=== PATIENT | female | born 1990 | race Caucasian/White ===

== ENCOUNTER 2021-11-03 10:38 | Observation (INO) ==
[2021-11-03] MEDS ORDERED: LACTATED RINGER'S 1,000 ML IV PRN (10:56)
[2021-11-03] MEDS ORDERED: OXYTOCIN 30 UNITS/500 ML BAG IV PRN (10:56)
[2021-11-03] MEDS ORDERED: PENICILLIN G POTASSIUM 6 MU in DEXTROSE 5% 250 ML IV STA (10:56)
[2021-11-03 11:34] LABS: Hematocrit (blood only) 40.8 % (37-47); Hemoglobin 13.5 g/dL (12.0-16.0); Mean Corpuscular Hemoglobin 31.7 pg (25-34); Mean Corpuscular Hgb Conc 33.1 g/dL (32-36); Mean Corpuscular Volume 95.8 fL (80-100); Mean Platelet Volume 10.6 fL (7.4-10.4); Platelet Count 315 K/uL (130-400); RDW Coefficient of Variation 13.4 % (11.5-14.5); RDW Standard Deviation 46.5 fL (36.4-46.3); Red Blood Count 4.26 M/uL (4.2-5.4); White Blood Count 17.86 K/uL (4.8-10.8)
--- NOTE | 2021-11-03 12:05 | History & Physical Report ---
Date of Service November 03, 2021 Assessment & Plan (1) Trisomy 21 of fetus, current : Plan: transfer of patient to [facility] per patients request PCN for GBS prophylaxis Covid negative Admission and Anticipated Discharge Date Admission Date: November 03, 2021 History of Present Illness Chief Complaint: term in labor Primary Care Provider: ROSINA PCP 31 WF P0000 at 39.6 days seen at [facility] L&D after seen in office today to r/o labor. Noted to be mildred. She is requesting to be transferred to [facility] despite her being in early labor due to her being followed by M and induction scheduled for tomorrow. Her GBS is positive. States she last had PCN as child with hives. Covid is negative. Allergies Allergy/AdvReac Type Severity Reaction Status Date / Time Penicillins Allergy Intermediate Hives Verified 11/03/21 11:05 Home Medications Medication Instructions Recorded Confirmed Type ferrous sulfate 325 mg (65 mg 325 mg PO DAILY 11/03/21 11/03/21 History iron) capsule,extended release iodine 150 mcg tablet 150 mcg PO DAILY 11/03/21 11/03/21 History prenat.vits,iqra,bez-jmnb-huphs 1 tab PO DAILY 11/03/21 11/03/21 History Patient History Surgical History H/O wisdom tooth extraction Social History Smoking Status: Never smoker Hx Alcohol Use: No Hx Substance Use: No Preferred Language: Iranian Communication Ability: Effective Nurse First Assist Required: No Beliefs That Will Affect Care: None marital status: Current Living Situation: Spouse Current Living Situation Comment: Lives with and 1 dog Other Information That Helps Us Care for You: No Feels Safe at Home: Yes Safety Concerns: Feels Safe At This Time Assistive Devices: None OB History Trisomy 21 with current 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 GC/Chlamydia negative Review of Systems All systems reviewed & are unremarkable except as noted in HPI & below Physical Exam Constitutional: WD/WN, vitals as above comfortable Eyes: PERRL, conjunctivae normal, anicteric sclerae Respiratory: normal respiratory effort, lungs clear to auscultation Cardiovascular: RRR, no murmur, no edema Skin: no rashes, warm and dry Neurologic: patellar DTR's 2+ bilat, sensation intact Psychiatric: A+Ox3, euthymic affect Genitourinary: no vaginal lesions, no adnexal mass normal external appearance OB Exam Abdomen: + fundal height and + vertex Manual OB Exam: + cervical dilation 4 cm, + cervical effacement 80% and + station -2 OB Exam Monitor Tracing: + external FHT monitor used, + external uterine monitor used, + category I and + normal FHT variability GBS is positive Results & Data ([facility]) Vital Signs (Past 12 Hours) Vital Signs Temp Pulse Resp BP 11/03/21 10:45 110 H 130/79 11/03/21 10:44 36.8 C 20 Laboratory Results 11/03/21 11/03/21 11/03/21 11:08 11:21 11:21 WBC 17.86 H RBC 4.26 Hgb 13.5 Hct 40.8 MCV 95.8 MCH 31.7 MCHC 33.1 RDW Std Deviation 46.5 H RDW Coeff of Brent 13.4 Plt Count 315 MPV 10.6 H SARS-CoV-2 (PCR) Cancelled Influenza Type A (PCR) Cancelled Influenza Type B (PCR) Cancelled RSV (RT-PCR) Cancelled SARS-CoV-2, RNA, NAAT NEGATIVE Code Status & VTE Plan VTE Prophylaxis Plan VTE Prophylaxis will be ordered: No Monitoring External Monitor Cat 1 with contractions noted 4 minutes apart
[2021-11-03] MEDS ORDERED: PENICILLIN G POTASSIUM 3 MU in DEXTROSE 5% 100 ML IV PRN (13:56)
== END 2021-11-03 13:04 | disposition short-term general hospital (02) ==
LOC: OPB 10:38 → 4S1 10:39 → INTOOBSV 10:56 → 4S1 10:56

== ENCOUNTER 2025-01-07 01:54 | Inpatient (IN) ==
--- OUTSIDE RECORDS SUMMARY | 2025-01-07 02:02 | External Medical Summary | Summary of Care ---
Author Name Unknown Organization [facility] Address [address] [place] [address] Phone [phone] Care Team Providers Care Yard Rigger Name Role Phone Unavailable Primary Care Provider Unavailabl e Reason for Visit * Reason Comments Return Visit Encounter Details Date Type Department Care Team ([facility] Contact Info) Description 01/02/2025 11:45 AM EDT Office Visit Gynecology/Obstetric s Jer Pineda [address] [place] [id number] Pat Campbell PA-C [address] [place] [phone] Supervision of other normal , antepartum*; GBS (group B streptococcus) infection; Antepartum multigravida of advanced maternal age; Family history of Down syndrome Allergies No known active allergiesdocumented as of this encounter (statuses as of 01/02/2025) Medications 27-0.8 MG Oral Tablet Take 1 Tablet by mouth in the morning. Active OneTouch Verio w/Device Kit Use as directed. Test blood sugar 4 times a day 1 Kit 5 01/03/20 25 Discontinu ed(Medicat ion List Clean Up) OneTouch Delica Lancets 33G Test blood sugar 4 times a day 100 Each 1 5 03/12/20 25 Discontinu ed(Medicat ion List Clean Up) OneTouch Verio In Vitro Strip (Glucose Blood) Test blood sugar 4 times a day 100 Strip 1 5 01/03/20 25 Discontinu ed(Medicat ion List Clean Up) documented as of this encounter (statuses as of 01/02/2025) Active Problems Problem Noted Date Diagnosed Date Supervision of other normal , antepartu m 07/09/2024 Antepartum multigravida of advanced maternal age 0907/09/2024 Family history of Down syndrome 07/09/2024 Overview (07/09/2024): Daughter with T21 Vaginal delivery 11/04/2021 GBS (group B streptococcus) infection 10/23/2021 Overview (12/19/2024): Assessment & Plan (10/27/2021 4:12 PM EST): 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 Allergic rhinitis 08/02/2010 Estimated Date of Delivery Comme nts Yes 01/08/2025 Based on Ultraso und documented as of this encounter (statuses as of 01/02/2025) Resolved Problems Problem Noted Date Diagnosed Date Resolved Date Pleural effusion, , aff ecting care of mother, antepartum 08/14/2021 12/14/2021 Overview (10/27/2021): Resolved as of 10/27/21 per [facility] Assessment & Plan (10/27/2021 4:13 PM EST): No effusion visualized today. This is excellent news as will hopefully minimize need for invasive intervention by NICU team. We did discuss risk for hypotonia in neonates with T21, so baby will be evaluated at for any additional medical support needed. Labor precautions reviewed as well as plan to present to nearest hospital in the event of an emergency or bad weather as maternal or transport can be arranged if needed. kick counts reviewed and Danica is to call/present to triage with any concerns. No further surveillance is scheduled prior to IOL next week. Assessment & Plan (10/22/2021 4:30 PM EST): She presents for follow-up of growth, a pleural effusion and surveillance. This has been complicated by the finding of pleural effusions (L>R) and concern for Trisomy 21 on cffDNA. Today's ultrasound notes the following: We reviewed the results of today's ultrasound. The estimated weight is appropriate for gestational age in the 33rd percentile. The visualized anatomy is unremarkable in appearance. The previously noted pleural effusions have essentially resolved, with perhaps only a trace left pleural effusion remaining. The LEONID is normal. A BPP is 8/8. There is no evidence of hydrops. Recommend continued weekly follow-up as planned. Assessment & Plan (10/15/2021 5:59 PM EST): She presents for follow-up of a pleural effusion and surveillance. This has been complicated by the finding of pleural effusions (L>R) and concern for Trisomy 21 on cffDNA. We reviewed the results of today's ultrasound. The pleural effusions have decreased in size compared to prior exams. The LEONID is normal. A BPP is 8/8. There is no evidence of hydrops. I recommended continued weekly follow-up as planned. Assessment & Plan (09/18/2021 4:41 PM EST): Right lung: Trace pleural effusion Left lung: abnormal, pleural effusion measuring 6 x 2.0 x 3cm. Pleural effusions continue to be seen. Today, the left sided pleural effusion appears to be stable compared to the evaluation from last week. Right sided effusion has improved. No other signs of hydrops. Will continue to follow weekly for BPP and hydrops check. MDC has occurred. Plan for delivery in [place]. Patient understands possible need for pleurocentesis after delivery. Assessment & Plan (08/28/2021 3:35 PM EDT): Right lung: Normal today Left lung: abnormal, pleural effusion measuring 4.5 x 2.0 x 1.5cm Unilateral pleural effusion continue to be seen. Today, the left sided pleural effusion appears to be smaller than the evaluation from last week. The right sided pleural effusion is not seen today. No other signs of hydrops. Will add weekly BPP at 32 weeks Will continue to follow weekly. Patient desires MDC in the near future given her desire to see the facilities at [facility]. peds referral made. Assessment & Plan (08/14/2021 12:24 PM EDT): Right lung: abnormal, trace pleural effusion Left lung: abnormal, pleural effusion measuring 3.7 x 3.0 x 2.4cm Bilateral pleural effusions continue to be seen. Today, the left sided pleural effusion appears larger than the right side but is smaller than last week. The right sided pleural effusion continues to be seen but has gotten smaller. Will continue to follow weekly. Patient desires MDC in the near future given her desire to see the facilities at [facility]. Abnormal chromosomal and gen etic finding on screening of mother 07/09/2021 12/14/2021 Assessment & Plan (08/28/2021 3:37 PM EDT): Presumed T21 based on NIPT. Assessment & Plan (08/14/2021 12:20 PM EDT): Likely T21 based on ultrasound findings and NIPT results. Cystic hygroma of fetus in s [place] 06/30/2021 12/14/2021 Overview (09/08/2021): Cell free DNA screening: ordered as of 06/22/21; consider amniocentesis upon result. Attend genetics counselor appointment on 06/30/21. Pediatric Cardiology echocardiogram at 22-23 weeks. [facility] serial growth scan every 4 weeks. [facility] serial hydrops check after 24.0 weeks. Weekly BPP at 32 wks multidisciplinary conference: [facility]. Rubella non-immune status, antepartum 04/02/2021 12/14/2021 High-risk 04/01/2021 12/14/19 22 Acute URI 08/02/2010 07/03/2018 Cough 08/02/2010 07/03/2018 ADVANCE DIRECTIVE INFORMATION 03/01/2006 07/03/2018 Overview (03/01/2006): Not age appropriate Varicella without complication 10/25/2002 07/03/2018 RUBELLA UNCOMPLICATED - age 2 04/27/2000 07/03/2018 documented as of this encounter (statuses as of 01/02/2025) Immunizations Name Administration Dates Next Due H1N1 2009 Influenza, IM 03/02/2010 HPV Vaccine, 4-Valent 09/10/2010,05/07/2010,02/21 Hepatitis A, Ped/Adol., 18 y ear and below, 2-Dose 04/27/2006 MMR - Measles/Mumps/Rubella Vaccine 11/05/2021 Seasonal Influenza, PF, 6 M & above, IM , (FluLaval or Fluzone) 08/11/2021 TDAP (age 10 and older)(Boostrix) 08/11/2021,10/2011 documented as of this encounter Social History Tobacco Use Types Packs/Day Years Used Date Smoking Tobacco: Never Smokeless Tobacco: Never Alcohol Use Standard Drinks/Week Comments Not Currently 0 (1 standard drink = 0.6 oz pur e alcohol) rare Hunger Vital Sign Answer Date Recorded Within the past 12 months, y ou worried that your food would run out before you got the money to buy more. Never true 11/16/19 25 Within the past 12 months, t he food you bought just didn't last and you didn't have money to get more. Never true 11/16/2024 [place] Depression Scale Answer Date Recorded [place] Depression Scale Total 0 11/16/2024 The thought of harming myself has occurred to me . Never 11/16/2024 Childcare Answer Date Recorded Do you feel overwhelmed with taking care of a child, family member or friend? No 11/16/2024 Does your family need help f inding childcare? (Household - for ages 0-17 years) Not on file 11/16/2024 Clothing Answer Date Recorded Have you been unable to get clothing when it was really needed? No 11/16/2024 Is your family able to get c lothes or diapers when needed? (Household - for ages 0-17 years) Not on file 11/16/2024 Personal Safety Answer Date Recorded Do you feel unsafe or have concerns for your saf ety? No 11/16/2024 Do you have concerns for you r family's safety? (Household - for ages 0-17 years) Not on file 11/16/2024 Utilities Answer Date Recorded Do you have trouble paying y our heating, water, or electric bill? No 11/16/2024 Is your family able to pay t he heat, water, or electric bill? (Household - for ages 0-17 years) Not on file 11/16/2024 Does your family have access to good internet? (Household - for ages 0-17 years) Not on file 11/16/2024 Employment Status Answer Date Recorded Are you unemployed or without regular income? No 11/16/2024 Does the household have a re gular source of income? (Household - for ages 0-17 years) Not on file 11/16/2024 Social Connections Answer Date Recorded How often do you feel lonely or isolated from th ose around you? Never 11/16/2024 Financial Resource Strain Answer Date R ecorded Do you have any trouble payi ng for your medications, or do you think you might in the future? No 11/16/2024 Does your family have troubl e paying for medicine? (Household - for ages 0-17 years) Not on file 11/16/2024 Transportation Needs Answer Date Record ed Do you have trouble getting a ride to medical visits or work? (Adult - for ages 18 years and over) Not on file 11/16/2024 Does your family have a hard time getting a ride to doctors visits? (Household - for ages 0-17 years) Not on file 11/16/2024 Has lack of transportation k ept you from medical appointments, meetings, work, or from getting things needed for daily living? Check all that apply. No 11/16/2024 Do you (or your family) have trouble finding or paying for a ride (transportation)? (Household - for ages 0-17 years) Not on file 11/16/2024 Housing Stability Answer Date Recorded Do you currently live in a s helter or have no steady place to sleep at night? No 11/16/2024 Do you think you are at risk of becoming homeless? (Adult - for ages 18 years and over) Not on file 11/16/2024 Does your family worry about paying for your home or becoming homeless? (Household - for ages 0-17 years) Not on file 11/16/2024 Are you homeless or worried that you might be in the future? No 11/16/2024 Are you (or your family) emilio eless or worried that you might be in the future? (Household - for ages 0-17 years) Not on file Food Insecurity Answer Date Recorded Do you need food for this week? No 11/16/2024 Are you able to get enough f ood for your family? (Household - for ages 0-17 years) Not on file 11/16/2024 Does your family need food t his week? (Household - for ages 0-17 years) Not on file 11/16/2024 Do you always have enough fo od for your family? (Household - for ages 0-17 years) Not on file 11/16/2024 Food Insecurity Answer Date Recorded Within the past 12 months, y ou worried that your food would run out before you got the money to buy more. Never true 11/16/19 25 Within the past 12 months, t he food you bought just didn't last and you didn't have money to get more. Never true 11/16/2024 Do you need food for this week? No 11/16/2024 Estimated Date of Delivery Comme nts Yes 01/08/2025 Based on Ultraso und Sex and Gender Information Value Date Recorded Sex Assigned at Not on file Legal Sex Female 7:15 AM EST Gender Identity Not on file Sexual Orientation Not on file documented as of this encounter Last Filed Vital Signs Vital Sign Reading Time Taken Comments Blood Pressure 124/78 01/02/2025 11:46 AM EDT Pulse - - Temperature - - Respiratory Rate - - Oxygen Saturation - - Inhaled Oxygen Concentration - - Weight 79.4 kg (175 lb) 01/02/2025 11:46 AM EDT Height 154.9 cm (5' 1") 01/02/2025 11:46 AM EDT Body Mass Index 33.07 01/02/2025 11:46 AM EDT documented in this encounter Progress Notes * Pat Campbell PA-C - 01/02/2025 12:15 PM EDT 39w1d GBS positive, was last . Asking about hospital protocol for Mike Faria specifically. Advised to contract L&D for specifics on her questions. Discussed postdate IOL. Reviewed increased concern for maternal- well being especially 41 weeks + and that IOL are at times limited d/t scheduling. For this discussed is typically Plan B with natural labor being goal, and that scheduling ahead helps to ensure scheduled in timely manner. Patient politely declines. States I am "not really interested" in induction. Pt states prefers to wait well after due date. States would consider around 42 weeks if necessary. However, went into natural labor around due date with last child and does not feel she will go that long with this . Denies VB, LOF, contractions. Pos fm. Declines check. RTC in 1 week Pat Campbell PA-C documented in this encounter Nursing Notes * Yuly Friend LPN - 01/02/2025 11:50 AM EDT 39w1d Declines IOL Would like to discuss GBS documented in this encounter Plan of Treatment Upcoming Encounters Date Type Department Care Team (Late st Contact Info) Description 01/09/2025 10:30 AM EDT Office Visit Gynecology/Obstetrics [facility] [address] [place] [id number] Pat Campbell PA-C [address] [place] [place] [phone] Health Maintenance Due Date Last Done Comments Diabetes Screening 1990 Depression Screening 2002 HPV/Co-Test 01/02/2020 Cervical Cancer Screening 04/01/2024 Pap Smear 04/01/2024 04/01/2021, 06/24, 06/15/2012 COVID-19 Vaccine ( season) 2024 Influenza Vaccine (FLU shot) (#1) 2024 08/11/2021, 03/02/2010 DTap/Tdap Vaccines (9 - Td or Tdap) 08/11/2031 08/11/2021, 10/24/2011, 07/28/2005, Additional history exists Hepatitis B Vaccine Completed 03/05/1996, 09/09/1995, 08/09/1995 MENINGOCOCCAL (MENACTRA/MENVEO) Aged Out 10/26/2005 No longer eligible based on patient's age to complete this topic HPV (Gardasil) Vaccine Completed 0, 05/07/2010, 03/02/2010 Meningitis B Vaccine (Bexsero/Trumemba) Aged Out No longer eligible based on patient's age to complete this topic Pneumococcal Vaccine: Pediatrics (0 to 5 Years) and At-Risk Patients (6 to 18 Years and 19+ Years) Aged Out No longer eligib le based on patient's age to complete this topic documented as of this encounter Medical Devices Not on filedocumented as of this encounter Visit Diagnoses Diagnosis Pleural effusion, , affecting care of mother, antepartum- Primary Cystic hygroma of fetus in [place] Abnormal chromosomal and genetic finding on screening of mother Abnormal findings on screening GBS (group B streptococcus) infection Streptococcus infection in conditions classified elsewhere and of unspecified site, group B Supervision of other normal , antepartum- Primary GBS (group B streptococcus) infection Streptococcus infection in conditions classified elsewhere and of unspecified site, group B Antepartum multigravida of advanced maternal age Family history of Down syndrome Family history of congenital anomalies documented in this encounter Advance Directives * Full Code (Latest Code Status on File) Date Activated Date Inactivated Comments 11/03/2021 3:30 PM 11/05/2021 6:21 PM This order r eflects the patients wishes and were consensually agreed upon.
--- OUTSIDE RECORDS SUMMARY | 2025-01-07 02:02 | External Medical Summary | Summary of Care ---
Author Name Unknown Organization [facility] Address [address] [place] [address] Phone [phone] Care Team Providers Care Elevator Operator Name Role Phone Unavailable Primary Care Provider Unavailabl e Reason for Visit * Reason Comments Return Visit Encounter Details Date Type Department Care Team ([facility] Contact Info) Description 12/17/2024 10:15 AM EST Office Visit Gynecology/Obstetric s Jer Pineda [address] [place] [address] Lizzy Rocha CRNP [address] [place] [address] Supervision of other normal , antepartum*; Antepartum multigravida of advanced maternal age; Family history of Down syndrome Allergies No known active allergiesdocumented as of this encounter (statuses as of 12/17/2024) Medications 27-0.8 MG Oral Tablet Take 1 Tablet by mouth in the morning. Active OneTouch Verio w/Device Kit Use as directed. Test blood sugar 4 times a day 1 Kit Active Additional Information Patient not taking.Reported on 12/17/2024 OneTouch Delica Lancets 33G Test blood sugar 4 times a day 100 Each 1 Active Additional Information Patient not taking.Reported on 12/17/2024 OneTouch Verio In Vitro Strip (Glucose Blood) Test blood sugar 4 times a day 100 Strip 1 Active Additional Information Patient not taking.Reported on 12/17/2024 documented as of this encounter (statuses as of 12/17/2024) Active Problems Problem Noted Date Diagnosed Date Supervision of other normal , antepartu m 07/09/2024 Antepartum multigravida of advanced maternal age 0907/09/2024 Family history of Down syndrome 07/09/2024 Overview (07/09/2024): Daughter with T21 Vaginal delivery 11/04/2021 Allergic rhinitis 08/02/2010 Estimated Date of Delivery Comme nts Yes 01/08/2025 Based on Ultraso und documented as of this encounter (statuses as of 12/17/2024) Resolved Problems Problem Noted Date Diagnosed Date Resolved Date GBS (group B streptococcus) infection 10/23/2021 12/14/2021 Overview (10/30/2021): 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 Assessment & Plan (10/27/2021 4:12 PM EST): 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 Pleural effusion, , aff ecting care of mother, antepartum 08/14/2021 12/14/2021 Overview (10/27/2021): Resolved as of 10/27/21 per [facility] Assessment & Plan (10/27/2021 4:13 PM EST): [...] MDC has occurred. Plan for delivery in [place]. Patient understands possible need for pleurocentesis after [...] her desire to see the facilities at [facility]. peds referral made. Assessment & Plan (08/14/2021 [...] her desire to see the facilities at [facility]. Abnormal chromosomal and gen etic finding on screening of mother 07/09/2021 12/14/2021 Assessment & Plan (08/28/2021 3:37 PM EDT): Presumed T21 based on NIPT. Assessment & Plan (08/14/2021 12:20 PM EDT): Likely T21 based on ultrasound findings and NIPT results. Cystic hygroma of fetus in s [place] 06/30/2021 12/14/2021 Overview (09/08/2021): Cell free DNA screening: ordered as of 06/22/21; consider amniocentesis upon result. Attend genetics counselor appointment on 06/30/21. Pediatric Cardiology echocardiogram at 22-23 weeks. [facility] serial growth scan every 4 weeks. [facility] serial hydrops check after 24.0 weeks. Weekly [...] as of this encounter (statuses as of 12/17/2024) Immunizations Name Administration Dates Next Due H1N1 2008 Influenza, IM 03/02/2010 HPV Vaccine, 4-Valent 09/10/2010,05/07/2010,02/21 [...] money to get more. Never true 11/16/2024 [place] Depression Scale Answer Date Recorded [place] Depression Scale Total 0 11/16/2024 The thought [...] for ages 0-17 years) Not on file 0 11/16/2024 Are you homeless or worried that [...] Sign Reading Time Taken Comments Blood Pressure 118/72 12/17/2024 10:28 AM EST Pulse - - Temperature - - Respiratory Rate - - Oxygen Saturation - - Inhaled Oxygen Concentration - - Weight 79 kg (174 lb 3.2 oz) 12/17/2024 10:28 AM EST Height - - Body Mass Index 32.91 11/16/2024 1:34 PM EST documented in this encounter Progress Notes * Lizzy Rocha CRNP - 12/17/2024 10:49 AM EST 36w6d Complaints: none Feeling well overall. Good FM. No contractions, bleeding, or LOF. GBS today. Decorating Supervisor Documentation Provider requested hydro electric station operator. Name of hydro electric station operator: ERNESTINA Sargent * Lorena Jimenez CMA - 12/17/2024 10:28 AM EST 36w6d GBS swab today documented in this encounter Plan of Treatment Upcoming Encounters Date Type Department Care Team (Late st Contact Info) Description 01/02/2025 11:45 AM EDT [facility] [address] [place] [address] Pat Campbell PA-C [address] [place] [address] Pending Results Name Type Priority Associated Diagnoses Date /Time GROUP B STREP CULTURE/PCR Lab Routine Supervision of other normal , antepartum 12/17/2024 10:40 AM EST Scheduled Orders Name Type Priority Associated Diagnoses Orde r Schedule GROUP B STREP CULTURE/PCR Lab Routine Supervision of other normal , antepartum Expected: 12/17/2024, Expires: 12/17/2025 Health Maintenance Due Date Last Done Comments Depression Screening 2002 HPV/Co-Test 01/02/2020 Cervical Cancer [...] as of this encounter Visit Diagnoses Diagnosis Supervision of other normal , antepartum- Primary Antepartum multigravida of advanced maternal age Family history of Down syndrome Family history of congenital anomalies documented in this encounter Advance Directives * Full Code (Latest Code Status on File) Date Activated Date Inactivated Comments 11/03/2021 3:30 PM 11/05/2021 6:21 PM This order r eflects the patients wishes and were consensually agreed upon.
--- OUTSIDE RECORDS SUMMARY | 2025-01-07 02:02 | External Medical Summary | Summary of Care ---
Author Name Unknown Organization [facility] Address [address] [place] [address] Phone [phone] Care Team Providers Care Community Health Specialist Name Role Phone Unavailable Primary Care Provider Unavailabl e Encounter Details Date Type Department Care Team (Late st Contact Info) Description 11/01/2024 Telephone Gynecology/Obstetrics [facility] [address] [place] [address] Lizzy Rocha CRNP [address] [place] [phone] Allergies No known active allergiesdocumented as of this encounter (statuses as of 11/05/2024) Medications 27-0.8 MG Oral Tablet Take 1 Tablet by mouth in the morning. Active documented as of this encounter (statuses as of 11/05/2024) Active Problems Problem Noted Date Diagnosed Date Supervision of other normal , antepartu m 07/09/2024 Antepartum multigravida of advanced maternal age 0907/09/2024 Family history of Down syndrome 07/09/2024 Overview (07/09/2024): Daughter with T21 Vaginal delivery 11/04/2021 Allergic rhinitis 08/02/2010 Estimated Date of Delivery Comme nts Yes 01/08/2025 Based on Ultraso und documented as of this encounter (statuses as of 11/05/2024) Resolved Problems Problem Noted Date Diagnosed Date [...] Overview (10/27/2021): Resolved as of 10/27/21 per [facility] Assessment & Plan (10/27/2021 4:13 PM EST): [...] MDC has occurred. Plan for delivery in [place]. Patient understands possible need for pleurocentesis after [...] desire to see the facilities at [facility]. peds referral made. [...] desire to see the facilities at [facility]. Abnormal chromosomal and gen etic finding on screening of mother 07/09/2021 12/14/2021 Assessment & Plan (08/28/2021 3:37 PM EDT): Presumed T21 based on NIPT. Assessment & Plan (08/14/2021 12:20 PM EDT): Likely T21 based on ultrasound findings and NIPT results. Cystic hygroma of fetus in s [place] 06/30/2021 12/14/2021 Overview (09/08/2021): Cell free DNA screening: ordered as of 06/22/21; consider amniocentesis upon result. Attend genetics counselor appointment on 06/30/21. Pediatric Cardiology echocardiogram at 22-23 weeks. [facility] serial growth scan every 4 weeks. [facility] serial hydrops check after 24.0 weeks. Weekly [...] as of this encounter (statuses as of 11/05/2024) Immunizations Name Administration Dates Next Due H1N1 [...] = 0.6 oz pur e alcohol) rare [place] Depression Scale Answer Date Recorded [place] Depression Scale Total 1 07/09/2024 The thought of harming myself has occurred to me . Never 07/09/2024 Estimated Date of Delivery Comme nts Yes 01/08/2025 Based on Ultraso und Sex and Gender Information Value Date Recorded Sex Assigned at Not on file Legal Sex Female 7:15 AM EST Gender Identity Not on file Sexual Orientation Not on file documented as of this encounter Miscellaneous Notes * Telephone Encounter - Lizzy Rocha CRNP - 11/01/2024 8:53 AM EST I believe there is a Fresh Test option that she could purchase. This would be fine for her to do, the same way she did the Fresh Test yesterday. * Telephone Encounter - Rufina Mai LPN - 11/01/2024 8:34 AM EST Patient notified of abnormal glucola. The order has been placed in epic. Patient. advised to be NPO after 10pm the night before the test.The patient must stay on the premises for the entire time of the test. Patient counseled to take something to eat for after testing. Patients 1 hour testing was done via fresh test. Is there an option to do this for the 3 hour testing? * Telephone Encounter - Lizzy Rocha CRNP - 11/01/2024 8:28 AM EST Please notify pt that glucola elevated (190). Needs 3hr GTT. Orders placed. documented in this encounter Plan of Treatment Upcoming Encounters Date Type Department Care Team (Late st Contact Info) Description 11/16/2024 1:30 PM EST Office Visit Gynecology/Obstetrics Jer Pineda [address] [place] [address] Backer AnabelaERNESTINA Johansen [address] [place] [address] Scheduled Orders Name Type Priority Associated Diagnoses Orde r Schedule GESTATIONAL GLUCOSE TOLERANCE, 3 HOUR Lab Routine Abnormal glucose tolerance in mother complicating Expected: 11/02/2024 (Approximate), Expires: 11/01/2025 Health Maintenance Due Date Last Done Comments [...] HPV (Gardasil) Vaccine Completed 0, 05/07/2010, 03/02/2010 Pneumococcal Vaccine: Pediatrics (0 to 5 Years) and At-Risk Patients (6 to 18 Years and 19+ Years) Aged Out No longer eligib le based on patient's age to complete this topic documented as of this encounter Medical Devices Not on filedocumented as of this encounter Visit Diagnoses Diagnosis Abnormal glucose tolerance in mother complicating - Primary Abnormal maternal glucose tolerance, complicating , childbirth, or the puerperium, unspecified as to episode of care documented in this encounter Advance Directives * Full Code (Latest Code Status on File) Date Activated Date Inactivated Comments 11/03/2021 3:30 PM 11/05/2021 6:21 PM This order r eflects the patients wishes and were consensually agreed upon.
--- OUTSIDE RECORDS SUMMARY | 2025-01-07 02:02 | External Medical Summary | Summary of Care ---
Author Name Unknown Organization [facility] Address [address] [place] [address] Phone [phone] Care Team Providers Care Linoleum Mechanic Name Role Phone Unavailable Primary Care Provider Unavailabl e Reason for Visit * Reason Comments Return Visit Encounter Details Date Type Department Care Team ([facility] Contact Info) Description 11/16/2024 1:30 PM EST Office Visit Gynecology/Obstetric s Jer Pineda [address] [place] [address] Anabela Zamorano CRNP [address] [place] [address] Supervision of other normal , antepartum*; Antepartum multigravida of advanced maternal age; Family history of Down syndrome Allergies No known active allergiesdocumented as of this encounter (statuses as of 11/16/2024) Medications 27-0.8 MG Oral Tablet Take 1 Tablet by mouth in the morning. Active e-Go aeroplanesTouch Verio w/Device Kit Use as directed. Test blood sugar 4 times a day 1 Kit 11/05/2024 Active e-Go aeroplanesTouch Delica Lancets 33G Test blood sugar 4 times a day 100 Each 1 11/05/2024 Active e-Go aeroplanesTouch Verio In Vitro Strip (Glucose Blood) Test blood sugar 4 times a day 100 Strip 1 11/05/2024 Active documented as of this encounter (statuses as of 11/16/2024) Active Problems Problem Noted Date Diagnosed Date Supervision of other normal , antepartu m 07/09/2024 Antepartum multigravida of advanced maternal age 0907/09/2024 Family history of Down syndrome 07/09/2024 Overview (07/09/2024): Daughter with T21 Vaginal delivery 11/04/2021 Allergic rhinitis 08/02/2010 Estimated Date of Delivery Comme nts Yes 01/08/2025 Based on Ultraso und documented as of this encounter (statuses as of 11/16/2024) Resolved Problems Problem Noted Date Diagnosed Date [...] Overview (10/27/2021): Resolved as of 10/27/21 per [facility] Assessment & Plan (10/27/2021 4:13 PM [...] MDC has occurred. Plan for delivery in [place]. Patient understands possible need for pleurocentesis after [...] her desire to see the facilities at [facility]. peds referral made. Assessment & Plan (08/14/2021 [...] her desire to see the facilities at [facility]. Abnormal chromosomal and gen etic finding on screening of mother 07/09/2021 12/14/2021 Assessment & Plan (08/28/2021 3:37 PM EDT): Presumed T21 based on NIPT. Assessment & Plan (08/14/2021 12:20 PM EDT): Likely T21 based on ultrasound findings and NIPT results. Cystic hygroma of fetus in s [place] 06/30/2021 12/14/2021 Overview (09/08/2021): Cell free DNA screening: ordered as of 06/22/21; consider amniocentesis upon result. Attend genetics counselor appointment on 06/30/21. Pediatric Cardiology echocardiogram at 22-23 weeks. [facility] serial growth scan every 4 weeks. [facility] serial hydrops check after 24.0 weeks. [...] as of this encounter (statuses as of 11/16/2024) Immunizations Name Administration Dates Next Due H1N1 [...] money to get more. Never true 11/16/2024 [place] Depression Scale Answer Date Recorded [place] Depression Scale Total 0 11/16/2024 The thought [...] 11/16/2024 Does the household have a re lar source of income? (Household - for ages [...] ages 0-17 years) Not on file 11/16/2024 Estimated Date of Delivery Comme nts Yes 01/08/2025 Based on Ultraso und Sex and Gender Information Value Date Recorded Sex Assigned at Not on file Legal Sex Female 7:15 AM EST Gender Identity Not on file Sexual Orientation Not on file documented as of this encounter Last Filed Vital Signs Vital Sign Reading Time Taken Comments Blood Pressure 112/70 11/16/2024 1:34 PM EST Pulse - - Temperature - - Respiratory Rate - - Oxygen Saturation - - Inhaled Oxygen Concentration - - Weight 77.6 kg (171 lb) 11/16/2024 1:34 PM EST Height 154.9 cm (5' 1") 11/16/2024 1:34 PM EST Body Mass Index 32.31 11/16/2024 1:34 PM EST documented in this encounter Progress Notes * Anabela Zamorano CRNP - 11/16/2024 1:54 PM EST 32w3d Doing well, good movement. No leaking/bleeding/ctx. Checked blood sugar QID x2 weeks, all WNL. Can discontinue this, will scan results to EMR. S>D, suggest growth scan. She declines, wishes to recheck fundal height at next visit. 2 week return ERNESTINA Chambers documented in this encounter Plan of Treatment Upcoming Encounters Date Type Department Care Team (Late st Contact Info) Description 12/05/2024 9:30 AM EST Office Visit Gynecology/Obstetrics [facility] [address] [place] [address] Lizzy Rocha CRNP [address] [place] [phone] Health Maintenance Due Date Last Done Comments [...]
--- OUTSIDE RECORDS SUMMARY | 2025-01-07 02:02 | External Medical Summary | Summary of Care ---
Author Name Unknown Organization [facility] Address [address] [place] [address] Phone [phone] Care Team Providers Care Steward/Stewardess Banquet Name Role Phone Unavailable Primary Care Provider Unavailabl e Reason for Visit * Reason Onset Date Comments Follow Up 01/02/2025 Encounter Details Date Type Department Care Team ([facility] Contact Info) Description 01/02/2025 Telephone Gynecology/Obstetrics Jer Sorianos [address] [place] [address] Lizzy Rocha CRNP [address] [place] [address] Follow Up Allergies No known active allergiesdocumented as of [...] Overview (10/27/2021): Resolved as of 10/27/21 per [facility] Assessment & Plan (10/27/2021 4:13 PM EST): [...] MDC has occurred. Plan for delivery in [place]. Patient understands possible need for pleurocentesis after [...] her desire to see the facilities at [facility]. peds referral made. Assessment & Plan (08/14/2021 [...] her desire to see the facilities at [facility]. Abnormal chromosomal and gen etic finding on [...] [facility] serial growth scan every 4 weeks. [facility] serial hydrops check after 24.0 weeks. Weekly [...] money to get more. Never true 11/16/2024 [place] Depression Scale Answer Date Recorded [place] Depression Scale Total 0 11/16/2024 The thought [...] encounter Miscellaneous Notes * Telephone Encounter - Vandana Hollis OSA - 01/02/2025 12:11 PM EDT Please call patient to schedule 1 week return-No availability documented in this encounter Plan of Treatment Upcoming Encounters Date Type Department Care Team (Late st Contact Info) Description 01/09/2025 10:30 AM EDT Office Visit Gynecology/Obstetrics [facility] [address] [place] [address] Pat Campbell PA-C [address] [place] [address] Health Maintenance Due Date Last Done Comments [...] Not on filedocumented as of this encounter Advance Directives * Full Code (Latest Code Status on File) Date Activated Date Inactivated Comments 11/03/2021 3:30 PM 11/05/2021 6:21 PM This order r eflects the patients wishes and were consensually agreed upon.
--- OUTSIDE RECORDS SUMMARY | 2025-01-07 02:02 | External Medical Summary | Summary of Care ---
Author Name Unknown Organization [facility] Address [address] [place] [address] Phone [phone] Care Team Providers Care Bond Clerk Name Role Phone Unavailable Primary Care Provider Unavailabl e Reason for Visit * Reason Comments Outpatient Testing Encounter Details Date Type Department Care Team ([facility] Contact Info) Description 10/31/2024 2:30 PM EST Laboratory Laboratory, [facility] [address] [place] [address] [facility] [address] [place] [address] Supervision of other normal , antepartum Allergies No known active allergiesdocumented as of this encounter (statuses as of 10/31/2024) Medications 27-0.8 MG Oral Tablet Take 1 Tablet by mouth in the morning. Active documented as of this encounter (statuses as of 10/31/2024) Active Problems Problem Noted Date Diagnosed Date Supervision of other normal , antepartu m 07/09/2024 Antepartum multigravida of advanced maternal age 0907/09/2024 Family history of Down syndrome 07/09/2024 Overview (07/09/2024): Daughter with T21 Vaginal delivery 11/04/2021 Allergic rhinitis 08/02/2010 Estimated Date of Delivery Comme nts Yes 01/08/2025 Based on Ultraso und documented as of this encounter (statuses as of 10/31/2024) Resolved Problems Problem Noted Date Diagnosed Date [...] Overview (10/27/2021): Resolved as of 10/27/21 per [facility] Assessment & Plan (10/27/2021 4:13 PM [...] MDC has occurred. Plan for delivery in [place]. Patient understands possible need for pleurocentesis after [...] her desire to see the facilities at [facility]. peds referral made. Assessment & Plan (08/14/2021 [...] her desire to see the facilities at [facility]. Abnormal chromosomal and gen etic finding on [...] 06/30/21. Pediatric Cardiology echocardiogram at 22-23 weeks. [facility] serial growth scan every 4 weeks. [facility] serial hydrops check after 24.0 weeks. [...] as of this encounter (statuses as of 10/31/2024) Immunizations Name Administration Dates Next Due H1N1 [...] = 0.6 oz pur e alcohol) rare [place] Depression Scale Answer Date Recorded [place] Depression Scale Total 1 07/09/2024 The thought of harming myself has occurred to me . Never 07/09/2024 Estimated Date of Delivery Comme nts Yes 01/08/2025 Based on Ultraso und Sex and Gender Information Value Date Recorded Sex Assigned at Not on file Legal Sex Female 7:15 AM EST Gender Identity Not on file Sexual Orientation Not on file documented as of this encounter Plan of Treatment Upcoming Encounters Date Type Department Care Team (Late st Contact Info) Description 11/16/2024 1:30 PM EST Office Visit Gynecology/Obstetrics [facility] [address] [place] [address] BackerAnabela CRNP [address] [place] [address] Pending Results Name Type Priority Associated Diagnoses Date /Time CBC WITH WBC DIFFERENTIAL AND ANEMIA REFLEX WORKUP Lab Routine Supervision of other normal , antepartum 10/31/2024 3:57 PM EST SYPHILIS ANTIBODY SCREEN WITH REFLEX TO RPR Lab Routine Supervision of other normal , antepartum 10/31/2024 3:57 PM EST 50-G GESTATIONAL GLUCOSE, 1 HOUR Lab Routine Supervision of other normal , antepartum 10/31/2024 3:57 PM EST ANEMIA CBC Lab Routine Supervision of other normal , antepartum 10/31/2024 3:57 PM EST DIFFERENTIAL, AUTOMATED Lab Routine Supervision of other normal , antepartum 10/31/2024 3:57 PM EST ANEMIA REFLEX CHEMISTRY HOLD Lab Routine Supervision of other normal , antepartum 10/31/2024 3:57 PM EST SYPHILIS ANTIBODY SCREEN Lab Routine Supervision of other normal , antepartum 10/31/2024 3:57 PM EST Health Maintenance Due Date Last Done Comments [...] Diagnoses Diagnosis Supervision of other normal , antepartum documented in this encounter Advance Directives * Full Code (Latest Code Status on File) Date Activated Date Inactivated Comments 11/03/2021 3:30 PM 11/05/2021 6:21 PM This order r eflects the patients wishes and were consensually agreed upon.
--- OUTSIDE RECORDS SUMMARY | 2025-01-07 02:02 | External Medical Summary ---
Author Name Unknown Address Unknown Organization K01:[facility] [address] [place] [address] Laboratory Report Ordering Provider Test Date Status AUGUSTIN CAM 12/17/2024 10:40:33 Final Observation Date Value Abnormality Reference (Units ) Status Streptococcus agalactiae DNA [Presence] in Specimen by MILLI with probe detection 12/17/2024 10:40:33 Positive Abnormal Negative Final Group B Streptococcus detect ed by culture-enhanced PCR (amplified probe). [facility] 12/17/2024 10:40:33 24.9 Final [facility]BS [facility] - [facility] 12/17/2024 10:40:33 0.0 Final Performing Location [facility] [address] [place] [address]
--- OUTSIDE RECORDS SUMMARY | 2025-01-07 02:02 | External Medical Summary | Summary of Care ---
Author Name Unknown Organization [facility] Address [address] [place] [address] Phone [phone] Care Team Providers Care Wax Molder Name Role Phone Unavailable Primary Care Provider Unavailabl e Encounter Details Date Type Department Care Team (Late st Contact Info) Description 11/01/2024 Telephone Gynecology/Obstetrics [facility] [address] [place] [address] Lizzy Rocha CRNP [address] [place] [address] Allergies No known active allergiesdocumented as of [...] Overview (10/27/2021): Resolved as of 10/27/21 per [facility] Assessment & Plan (10/27/2021 [...] MDC has occurred. Plan for delivery in [place]. Patient understands possible need for pleurocentesis after [...] her desire [place] [facility]. Assessment & Plan (08/14/2021 [...] her desire to see the facilities at [facility] Abnormal chromosomal and gen etic finding on [...] = 0.6 oz pur e alcohol) rare [place] Depression Scale Answer Date Recorded [place] Depression Scale Total 1 07/09/2024 The thought [...] Jer Pineda [address] [place] [address] Backer AnabelaERNESTINA Johansen [address] [place] [address] Scheduled Orders Name Type Priority Associated Diagnoses [...]
--- OUTSIDE RECORDS SUMMARY | 2025-01-07 02:02 | External Medical Summary | Summary of Care ---
Author Name Unknown Organization [facility] Address [address] [place] [address] Phone [phone] Care Team Providers Care Beamer Operator Name Role Phone Unavailable Primary Care Provider Unavailabl e Reason for Visit * Reason Comments Return Visit Encounter Details Date Type Department Care Team ([facility] Contact Info) Description 12/05/2024 9:30 AM EST Office Visit Gynecology/Obstetric s Jer Pineda [address] [place] [address] Lizzy Rocha CRNP [address] [place] [address] Supervision of other normal , antepartum*; Antepartum multigravida of advanced maternal age; Family history of Down syndrome Allergies No known active allergiesdocumented as of this encounter (statuses as of 12/05/2024) Medications 27-0.8 MG Oral Tablet Take 1 Tablet by mouth in the morning. Active OneTouch Verio w/Device Kit Use as directed. Test blood sugar 4 times a day 1 Kit 5 Active Additional Information Patient not taking.Reported on 12/05/2024 OneTouch Delica Lancets 33G Test blood sugar 4 times a day 100 Each 1 5 Active Additional Information Patient not taking.Reported on 12/05/2024 OneTouch Verio In Vitro Strip (Glucose Blood) Test blood sugar 4 times a day 100 Strip 1 Active Additional Information Patient not taking.Reported on 12/05/2024 documented as of this encounter (statuses as of 12/05/2024) Active Problems Problem Noted Date Diagnosed Date Supervision of other normal , antepartu m 07/09/2024 Antepartum multigravida of advanced maternal age 0907/09/2024 Family history of Down syndrome 07/09/2024 Overview (07/09/2024): Daughter with T21 Vaginal delivery 11/04/2021 Allergic rhinitis 08/02/2010 Estimated Date of Delivery Comme nts Yes 01/08/2025 Based on Ultraso und documented as of this encounter (statuses as of 12/05/2024) Resolved Problems Problem Noted Date Diagnosed Date [...] Overview (10/27/2021): Resolved as of 10/27/21 per [facility] Assessment & Plan (10/27/2021 4:13 PM [...] MDC has occurred. Plan for delivery in [place]. Patient understands possible need for pleurocentesis after [...] her desire to see the facilities at [facility]. peds referral made. Assessment [...] her desire to see the facilities at [facility]. Abnormal chromosomal and gen [...] 06/30/21. Pediatric Cardiology echocardiogram at 22-23 weeks. [facility] serial growth scan every 4 weeks. [facility] serial hydrops check after 24.0 weeks. [...] as of this encounter (statuses as of 12/05/2024) Immunizations Name Administration Dates Next Due H1N1 [...] money to get more. Never true 11/16/2024 [place] Depression Scale Answer Date Recorded [place] Depression Scale Total 0 11/16/2024 The thought [...] Sign Reading Time Taken Comments Blood Pressure 114/72 12/05/2024 9:32 AM EST Pulse - - Temperature - - Respiratory Rate - - Oxygen Saturation - - Inhaled Oxygen Concentration - - Weight 78 kg (172 lb) 12/05/2024 9:32 AM EST Height - - Body Mass Index 32.5 11/16/2024 1:34 PM EST documented in this encounter Progress Notes * Lizzy Rocha CRNP - 12/05/2024 9:55 AM EST 35w1d No concerns. Baby is very active. Denies contractions, bleeding. Hoping to breastfeed, planning to use condoms. ERNESTINA Ventura * Lorena Jimenez CMA - 12/05/2024 9:32 AM EST 35w1d Denies any concerns documented in this encounter Plan of Treatment Upcoming Encounters Date Type Department Care Team (Late st Contact Info) Description 12/17/2024 10:15 AM EST Office Visit Gynecology/Obstetrics [facility] [address] [place] [address] Lizzy Rocha CRNP [address] [place] [address] Health Maintenance Due Date Last Done Comments [...]
--- OUTSIDE RECORDS SUMMARY | 2025-01-07 02:02 | External Medical Summary | Summary of Care ---
Author Name Unknown Organization [facility] Address [address] [place] [address] Phone [phone] Care Team Providers Care Tourist Escort Name Role Phone Unavailable Primary Care Provider Unavailabl e Encounter Details Date Type Department Care Team (Late st Contact Info) Description 11/01/2024 Telephone Gynecology/Obstetrics [facility] [address] [place] [address] Lizzy Rocha CRNP [address] [place] [address] Allergies No known active allergiesdocumented as of [...] Overview (10/27/2021): Resolved as of 10/27/21 per [facility] Assessment & Plan (10/27/2021 4:13 [...] MDC has occurred. Plan for delivery in [place]. Patient understands possible need for pleurocentesis after [...] her desire [place] [facility]. Assessment & Plan (08/14/2021 [...] her desire to see the facilities [place] [facility] Abnormal chromosomal and gen etic finding on [...] 11/05/2024) Immunizations Name Administration Dates Next Due DTP Vaccine 08/23/1994, 1,1990,03/07,08/21/1980 H1N1 2009 Influenza, IM 03/02/2010 HEP A - Hepatitis A (Adult > 18 yrs) 10/26/2005 HPV Vaccine, 4-Valent 09/10/2010,05/07/2010,02/21 Haemophilius B (HIB), unspecified 04/09/1991,,1990 Hepatitis A, Ped/Adol., 18 y ear and below, 2-Dose 04/27/2006 Hepatitis B, 0-19 yrs 03/05/1996,09/09/1995,07/24 MMR - Measles/Mumps/Rubella Vaccine 11/05/2021,1 ,04/09/1991 Meningococcal Conjugate Vacc ine (Menactra/Menveo) 10/26/2005 OPV - Polio Virus Vaccine (Oral) 994,04/09/1991,1990,03/07 Seasonal Influenza, PF, 6 M & above, IM , (FluLaval or Fluzone) 08/11/2021 TD - Tetanus/Diptheria (ADULT) 09/12/2002 TDAP (age 10 and older)(Boostrix) 08/11/2021,10/2011,07/28/2005 documented as of this encounter Social History Tobacco Use Types Packs/Day Years Used Date Smoking Tobacco: Never Smokeless Tobacco: Never Alcohol Use Standard Drinks/Week Comments Not Currently 0 (1 standard drink = 0.6 oz pur e alcohol) rare [place] Depression Scale Answer Date Recorded [place] Depression Scale Total 1 07/09/2024 The thought [...] encounter Miscellaneous Notes * Telephone Encounter - Rufina Mai LPN - 11/05/2024 10:37 AM EST [employer] for supplies * Telephone Encounter - Lizzy Rocha CRNP [...] 11/16/2024 1:30 PM EST Office Visit Gynecology/Obstetrics [facility] [place] [address] Backer, ERNESTINA Salcido [address] [facility] [place] [address] Scheduled Orders Name Type Priority Associated Diagnoses [...]
--- OUTSIDE RECORDS SUMMARY | 2025-01-07 02:02 | External Medical Summary | Summary of Care ---
Author Name Unknown Organization [facility] Address [address] [place] [address] Phone [phone] Care Team Providers Care Physician Relations Manager Name Role Phone Unavailable Primary Care Provider Unavailabl e Encounter Details Date Type Department Care Team (Late st Contact Info) Description 11/01/2024 Telephone Gynecology/Obstetrics [facility] [address] [place] [address] Dorina Rocha CRNP [address] [facility] [place] [address] Allergies No known active allergiesdocumented as of this encounter (statuses as of 11/05/2024) Medications 27-0.8 MG Oral Tablet Take 1 Tablet by mouth in the morning. Active K1 SpeedToFeedback Verio w/Device Kit Use as directed. Test blood sugar 4 times a day 1 Kit 11/05/2024 Active K1 SpeedTouch Delica Lancets 33G Test blood sugar 4 times a day 100 Each 1 11/05/2024 Active K1 SpeedTouch Verio In Vitro Strip (Glucose Blood) Test [...] Overview (10/27/2021): Resolved as of 10/27/21 per [facility] Assessment & Plan (10/27/2021 4:13 PM [...] MDC has occurred. Plan for delivery in [place]. Patient understands possible need for pleurocentesis after [...] her desire to see the facilities [place] [facility]. Assessment & Plan (08/14/2021 [...] her desire to see the facilities at [facility] Abnormal chromosomal and gen etic finding on [...] = 0.6 oz pur e alcohol) rare [place] Depression Scale Answer Date Recorded [place] Depression Scale Total 1 07/09/2024 The thought [...] as of this encounter Miscellaneous Notes * Addendum Note - Dorina Rocha CRNP - 11/05/2024 11:15 AM ESTAddended by: DORINA ROCHA on: 11/05/2024 11:15 AM Modules accepted: Orders * Telephone Encounter - Rufina Mai LPN - 11/05/2024 10:37 AM EST [employer] for supplies * Telephone Encounter - Dorina Rocha CRNP - 11/01/2024 8:53 AM EST I believe there is a Fresh Test option that she could purchase. This would be fine for her to do, the same way she did the Fresh Test yesterday. * Telephone Encounter - Rufina Mai LPN - 11/01/2024 8:34 AM EST Patient notified of abnormal glucola. The order has been placed in [employer]. Patient. advised to be NPO after 10pm the night before the test.The patient must stay on the premises for the entire time of the test. Patient counseled to take something to eat for after testing. Patients 1 hour testing was done via fresh test. Is there an option to do this for the 3 hour testing? * Telephone Encounter - Dorina Rocha CRNP - 11/01/2024 8:28 AM EST Please notify pt that glucola elevated (190). Needs 3hr GTT. Orders placed. documented in this encounter Plan of Treatment Upcoming Encounters Date Type Department Care Team (Late st Contact Info) Description 11/16/2024 1:30 PM EST Office Visit Gynecology/Obstetrics [facility] [place] [address] Backer, ERNESTINA Salcido [address] [place] [address] Scheduled Orders Name Type Priority Associated Diagnoses [...]
--- OUTSIDE RECORDS SUMMARY | 2025-01-07 02:02 | External Medical Summary | Summary of Care ---
Author Name Unknown Organization [facility] Address [address] [place] [address] Phone [phone] Care Team Providers Care Broadcast Traffic Coordinator Name Role Phone Unavailable Primary Care Provider Unavailabl e Encounter Details Date Type Department Care Team (Late st Contact Info) Description 11/01/2024 Telephone Gynecology/Obstetrics [facility] [address] [place] [address] Lizzy Rocha CRNP [address] [place] [address] Allergies No known active allergiesdocumented as of this encounter (statuses as of 11/01/2024) Medications 27-0.8 MG Oral Tablet Take 1 Tablet by mouth in the morning. Active documented as of this encounter (statuses as of 11/01/2024) Active Problems Problem Noted Date Diagnosed Date Supervision of other normal , antepartu m 07/09/2024 Antepartum multigravida of advanced maternal age 0907/09/2024 Family history of Down syndrome 07/09/2024 Overview (07/09/2024): Daughter with T21 Vaginal delivery 11/04/2021 Allergic rhinitis 08/02/2010 Estimated Date of Delivery Comme nts Yes 01/08/2025 Based on Ultraso und documented as of this encounter (statuses as of 11/01/2024) Resolved Problems Problem Noted Date Diagnosed Date [...] Overview (10/27/2021): Resolved as of 10/27/21 per [facility] Assessment & Plan (10/27/2021 4:13 PM [...] MDC has occurred. Plan for delivery in [place]. Patient understands possible need for pleurocentesis after [...] as of this encounter (statuses as of 11/01/2024) Immunizations Name Administration Dates Next Due H1N1 [...] = 0.6 oz pur e alcohol) rare [place] Depression Scale Answer Date Recorded [place] Depression Scale Total 1 07/09/2024 The thought [...] Jer Pineda [address] [place] [address] Backer AnabelaERNESTINA Johansen [address] [place] [address] Scheduled Orders Name Type Priority Associated Diagnoses [...]
--- OUTSIDE RECORDS SUMMARY | 2025-01-07 02:03 | External Medical Summary | Summary of Care ---
Author Name Unknown Organization [facility] Address [address] [place] [address] Phone [phone] Care Team Providers Care Orthopedic Radiologic Technologist Name Role Phone Unavailable Primary Care Provider Unavailabl e Reason for Visit * Reason Comments Return Visit Encounter Details Date Type Department Care Team ([facility] Contact Info) Description 09/05/2024 10:45 AM EST Office Visit Gynecology/Obstetric s Jer Pineda [address] [place] [address] Lizzy Rocha CRNP [address] [place] [address] Supervision of other normal , antepartum*; Antepartum multigravida of advanced maternal age; Family history of Down syndrome Allergies No known active allergiesdocumented as of this encounter (statuses as of 09/05/2024) Medications 27-0.8 MG Oral Tablet Take 1 Tablet by mouth in the morning. Active documented as of this encounter (statuses as of 09/05/2024) Active Problems Problem Noted Date Diagnosed Date Supervision of other normal , antepartu m 07/09/2024 Antepartum multigravida of advanced maternal age 0907/09/2024 Family history of Down syndrome 07/09/2024 Overview (07/09/2024): Daughter with T21 Vaginal delivery 11/04/2021 Allergic rhinitis 08/02/2010 Estimated Date of Delivery Comme nts Yes 01/08/2025 Based on Ultraso und documented as of this encounter (statuses as of 09/05/2024) Resolved Problems Problem Noted Date Diagnosed Date [...] Overview (10/27/2021): Resolved as of 10/27/21 per [facility] Assessment & Plan (10/27/2021 4:13 PM EST): [...] MDC has occurred. Plan for delivery in [place]. Patient understands possible need for pleurocentesis after [...] Will continue to follow weekly. Patient desires [facility] in the near future given her desire [...] 06/30/21. Pediatric Cardiology echocardiogram at 22-23 weeks. M serial growth scan every 4 weeks. MFM [...] as of this encounter (statuses as of 09/05/2024) Immunizations Name Administration Dates Next Due H1N1 [...] = 0.6 oz pur e alcohol) rare [place] Depression Scale Answer Date Recorded [place] Depression Scale Total 1 07/09/2024 The thought of harming myself has occurred to me . Never 07/09/2024 Utilities Answer Date Recorded Do you have trouble paying y our heating, water, or electric bill? (Adult - for ages 18 years and over) Not on file 04/10/2024 Is your family able to pay t he heat, water, or electric bill? (Household - for ages 0-17 years) Not on file 04/10/2024 Does your family have access to good internet? (Household - for ages 0-17 years) Not on file 04/10/2024 Social Connections Answer Date Recorded How often do you feel lonely or isolated from those around you? (Adult - for ages 18 years and over) Not on file 04/10/2024 Estimated Date of Delivery Comme nts Yes 01/08/2025 Based on Ultraso und Sex and Gender Information Value Date Recorded Sex Assigned at Not on file Legal Sex Female 7:15 AM EST Gender Identity Not on file Sexual Orientation Not on file documented as of this encounter Last Filed Vital Signs Vital Sign Reading Time Taken Comments Blood Pressure 112/62 09/05/2024 10:19 AM EST Pulse - - Temperature - - Respiratory Rate - - Oxygen Saturation - - Inhaled Oxygen Concentration - - Weight 72.1 kg (159 lb) 09/05/2024 10:19 AM EST Height - - Body Mass Index 30.04 03/24/2023 3:20 PM EDT documented in this encounter Progress Notes * Lizzy Rocha CRNP - 09/05/2024 10:31 AM EST 22w1d Complaints: none Feeling well. +FM. No contractions, bleeding, or LOF. Anatomy u/s today, all WNL. +cardiac activity on u/s. ERNESTINA Ventura * Lorena Jimenez CMA - 09/05/2024 10:25 AM EST 22w1d Denies any concerns documented in this encounter Plan of Treatment Upcoming Encounters Date Type Department Care Team (Late st Contact Info) Description 10/05/2024 10:30 AM EST Office Visit Gynecology/Obstetrics [facility] [address] [place] [address] Lizzy Rocha CRNP [address] [place] [address] Health Maintenance Due Date Last Done Comments [...] 5 Years) and At-Risk Patients (6 to 64 Years) Aged Out No longer eligible based on [...]
--- OUTSIDE RECORDS SUMMARY | 2025-01-07 02:03 | External Medical Summary | Summary of Care ---
Author Name Unknown Organization [facility] Address [address] [place] [address] Phone [phone] Care Team Providers Care Brick Setter Name Role Phone Unavailable Primary Care Provider Unavailabl e Reason for Visit * Reason Comments Return Visit Encounter Details Date Type Department Care Team ([facility] Contact Info) Description 10/05/2024 10:30 AM EST Office Visit Gynecology/Obstetric s Jer Pineda [address] [place] [address] Lizzy Rocha CRNP [address] [place] [address] Supervision of other normal , antepartum*; Antepartum multigravida of advanced maternal age; Family history of Down syndrome Allergies No known active allergiesdocumented as of this encounter (statuses as of 10/05/2024) Medications 27-0.8 MG Oral Tablet Take 1 Tablet by mouth in the morning. Active documented as of this encounter (statuses as of 10/05/2024) Active Problems Problem Noted Date Diagnosed Date Supervision of other normal , antepartu m 07/09/2024 Antepartum multigravida of advanced maternal age 0907/09/2024 Family history of Down syndrome 07/09/2024 Overview (07/09/2024): Daughter with T21 Vaginal delivery 11/04/2021 Allergic rhinitis 08/02/2010 Estimated Date of Delivery Comme nts Yes 01/08/2025 Based on Ultraso und documented as of this encounter (statuses as of 10/05/2024) Resolved Problems Problem Noted Date Diagnosed Date [...] Overview (10/27/2021): Resolved as of 10/27/21 per [facility] Assessment & Plan (10/27/2021 4:13 [...] MDC has occurred. Plan for delivery in [place]. Patient understands possible need for pleurocentesis after [...] her desire to see the facilities at [facility] peds referral made. Assessment & Plan (08/14/2021 [...] Will continue to follow weekly. Patient desires [facility] in the near future given her desire to see the facilities at [facility]. Abnormal chromosomal and gen etic finding on [...] as of this encounter (statuses as of 10/05/2024) Immunizations Name Administration Dates Next Due H1N1 [...] = 0.6 oz pur e alcohol) rare [place] Depression Scale Answer Date Recorded [place] Depression Scale Total 1 07/09/2024 The thought [...] Sign Reading Time Taken Comments Blood Pressure 114/64 10/05/2024 10:32 AM EST Pulse - - Temperature - - Respiratory Rate - - Oxygen Saturation - - Inhaled Oxygen Concentration - - Weight 74.4 kg (164 lb) 10/05/2024 10:32 AM EST Height - - Body Mass Index 30.99 03/24/2023 3:20 PM EDT documented in this encounter Progress Notes * Lizzy Rocha CRNP - 10/05/2024 10:48 AM EST 26w3d No concerns. Baby is active. No contractions, bleeding, LOF. Wants to do Fresh Test rather than usual glucola with next visit. Advised to order Fresh Test and bring unopened bottle of water. ERNESTINA Ventura * Lorena Jimenez CMA - 10/05/2024 10:32 AM EST 26w3d Denies any concerns documented in this encounter Plan of Treatment Upcoming Encounters Date Type Department Care Team (Late st Contact Info) Description 10/30/2024 10:00 AM EST [facility] [address] [place] [id number] Morena Pineda [facility] [address] [place] [address] 10/30/2024 10:15 AM EST Office Visit Gynecology/Obstetrics Jer Pineda [address] [place] [address] Lizzy Rocha CRNP [address] [place] [address] Scheduled Orders Name Type Priority Associated Diagnoses Orde r Schedule CBC WITH WBC DIFFERENTIAL AND ANEMIA REFLEX WORKUP Lab Routine Supervision of other normal , antepartum Expected: 10/16/2024 (Approximate), Expires: 10/05/2025 SYPHILIS ANTIBODY SCREEN WITH REFLEX TO RPR Lab Routine Supervision of other normal , antepartum Expected: 10/16/2024 (Approximate), Expires: 10/05/2025 50-G GESTATIONAL GLUCOSE, 1 HOUR Lab Routine Supervision of other normal , antepartum Expected: 10/16/2024 (Approximate), Expires: 10/05/2025 Health Maintenance Due Date Last Done Comments [...]
--- OUTSIDE RECORDS SUMMARY | 2025-01-07 02:03 | External Medical Summary ---
Author Name Unknown Address Unknown Organization [id number]:LABOR[facility] - [address] [place] [address] Laboratory Report Ordering Provider Test Date Status AUGUSTIN CAM 10/31/2024 15:57:05 Final Observation Date Value Abnormality Reference (Units ) Status SYNC LEUKOCYTES IN BLOOD BY AUTOMATED COUNT 10/31/2024 15:57:05 10.33 4.00-10.80 (K/uL) Final Segs 10/31/2024 15:57:05 82.1 Above high normal 40.0-75.0 (%) Final Lymphs % 10/31/2024 15:57:05 12.6 Below low normal 18.0-42.0 (%) Final Monos 10/31/2024 15:57:05 3.3 1.0-11.0 (%) Final Eosinophils 10/31/2024 15:57:05 0.9 0.0-6.0 (%) Final Basos 10/31/2024 15:57:05 0.2 0.0-2.0 (%) Final Immature Granulocyte, Percent 10/31/2024 15:57:05 0.9 0.0-2.0 (%) Final Absolute Segs 10/31/2024 15:57:05 8.49 Above high normal 1.80-7.70 (K/uL) Final Lymphs, absolute 10/31/2024 15:57:05 1.30 1.00-4.80 (K/ul) Final Monos, Abs 10/31/2024 15:57:05 0.34 0.00-1.10 (K/uL) Final Eos, Abs 10/31/2024 15:57:05 0.09 0.00-0.70 (K/uL) Final Basos, Abs 10/31/2024 15:57:05 0.02 0.00-0.20 (K/uL) Final Immature Granulocytes, Number 10/31/2024 15:57:05 0.09 0.00-0.20 (K/uL) Final Performing Location [facility] - [address] [facility] [id number]
--- OUTSIDE RECORDS SUMMARY | 2025-01-07 02:03 | External Medical Summary | Summary of Care ---
Author Name Unknown Organization [facility] Address [address] [place] [address] Phone [phone] Care Team Providers Care Space Controller Name Role Phone Unavailable Primary Care Provider Unavailabl e Reason for Visit * Reason Comments Outpatient Testing Encounter Details Date Type Department Care Team ([facility] Contact Info) Description 10/31/2024 2:30 PM EST Laboratory Laboratory, [facility] [address] [place] [id number] [facility] [address] [place] [address] Supervision of other normal , antepartum Allergies [...] Overview (10/27/2021): Resolved as of 10/27/21 per [facility] Assessment & Plan (10/27/2021 4:13 PM [...] MDC has occurred. Plan for delivery in [place]. Patient understands possible need for pleurocentesis after [...] her desire to see the facilities at [facility]. peds referral made. Assessment & Plan (08/14/2021 [...] her desire to see the facilities at [facility]. Abnormal chromosomal and gen etic finding on [...] 06/30/21. Pediatric Cardiology echocardiogram at 22-23 weeks. [facility] serial growth scan every 4 weeks. [facility] serial hydrops check after 24.0 weeks. [...] = 0.6 oz pur e alcohol) rare [place] Depression Scale Answer Date Recorded Luke Depression Scale Total 1 07/09/2024 The thought [...] 11/16/2024 1:30 PM EST Office Visit Gynecology/Obstetrics [facility] [address] [place] [address] BackerAnabela CRNP [address] [place] [address] Pending Results Name Type Priority Associated Diagnoses [...]
--- OUTSIDE RECORDS SUMMARY | 2025-01-07 02:03 | External Medical Summary | Summary of Care ---
Author Name Unknown Organization [facility] Address [address] [place] [address] Phone [phone] Care Team Providers Care Scrap Kettle Tender Name Role Phone Unavailable Primary Care Provider Unavailabl e Reason for Visit * Reason Comments Return Visit Encounter Details Date Type Department Care Team ([facility] Contact Info) Description 10/31/2024 3:00 PM EST Office Visit Gynecology/Obstetric s Jer Pineda [address] [place] [address] Lizzy Rocha CRNP [address] [place] [address] Supervision of other normal , antepartum*; Antepartum [...] Overview (10/27/2021): Resolved as of 10/27/21 per [facility] Assessment & Plan (10/27/2021 4:13 [...] MDC has occurred. Plan for delivery in [place]. Patient understands possible need for pleurocentesis after [...] Will continue to follow weekly. Patient desires [facility] in the near future given her desire [...] = 0.6 oz pur e alcohol) rare [place] Depression Scale Answer Date Recorded [place] Depression Scale Total 1 07/09/2024 The thought [...] Sign Reading Time Taken Comments Blood Pressure 120/80 10/31/2024 2:59 PM EST Pulse - - Temperature - - Respiratory Rate - - Oxygen Saturation - - Inhaled Oxygen Concentration - - Weight 75.8 kg (167 lb) 10/31/2024 2:59 PM EST Height - - Body Mass Index 31.55 03/24/2023 3:20 PM EDT documented in this encounter Progress Notes * Lizzy Rocha CRNP - 10/31/2024 3:18 PM EST 30w1d Complaints: none Feeling well. Good FM. No contractions, bleeding, or LOF. 3rd trimester labs today. Declines TDAP. ERNESTINA Ventura * Lorena Jimenez CMA - 10/31/2024 2:59 PM EST 30w1d Declines TDAP. Denies any concerns documented in this encounter Plan of Treatment Upcoming Encounters Date Type Department Care Team (Late st Contact Info) Description 11/16/2024 1:30 PM EST Office Visit Gynecology/Obstetrics Jer Pineda [address] [place] [address] Backer, ERNESTINA Salcido [address] [place] [address] Health Maintenance Due Date Last Done Comments [...]
--- OUTSIDE RECORDS SUMMARY | 2025-01-07 02:03 | External Medical Summary ---
Author Name Unknown Address Unknown Organization [id number]:[facility] [place] [address] [place] [address] Laboratory Report Ordering Provider Test Date Status AUGUSTIN CAM 10/31/2024 15:57:05 Final Observation Date Value Abnormality Reference (Units ) Status WBC, Total 10/31/2024 15:57:05 10.33 4.00-10.8 0 (K/uL) Final RBC 10/31/2024 15:57:05 3.97 3.85-5.15 (M/uL) Final Hemoglobin 10/31/2024 15:57:05 12.7 12.0-15.3 (g/dL) Final Anemia reflex testing trigge rs on a HGB < 12.0 for Females and HGB < 13.0 for Males in accordance with the WHO Anemia Guidelines
Anemia reflex testing triggers on a HGB < 12.0 for Females and HGB < 13.0 for Males in accordance with the WHO Anemia Guidelines HCT 10/31/2024 15:57:05 39.4 36.0-45.2 (%) Final MCV 10/31/2024 15:57:05 99.2 81.5-97.5 (fL) Final MCH 10/31/2024 15:57:05 32.0 27.0-34.0 (pg) Final MCHC 10/31/2024 15:57:05 32.2 32.0-36.0 (g/dL) Final RDW 10/31/2024 15:57:05 12.3 11.5-15.5 (%) Final Platelets 10/31/2024 15:57:05 225 140-400 (K /uL) Final MPV 10/31/2024 15:57:05 10.7 6.6-11.1 ( fL) Final Nucleated erythrocytes/100 leukocytes [Ratio] in Blood by Automated count 10/31/2024 15:57:05 0 <=0 (/100 WBCs) Fi [facility] Performing Location [facility] [place] [address] [place] [address]
--- OUTSIDE RECORDS SUMMARY | 2025-01-07 02:03 | External Medical Summary | Summary of Care ---
Author Name Unknown Organization [facility] Address [address] [place] [address] Phone [phone] Care Team Providers Care Stock Hanger Name Role Phone Unavailable Primary Care Provider Unavailabl e Reason for Visit * Reason Comments Outpatient Testing Encounter Details Date Type Department Care Team ([facility] Contact Info) Description 10/31/2024 2:30 PM EST Laboratory Laboratory, [facility] [address] [place] [phone] [facility] [address] [place] [address] Supervision of other normal , antepartum Allergies [...] Overview (10/27/2021): Resolved as of 10/27/21 per [facility] Assessment & Plan (10/27/2021 4:13 PM [...] MDC has occurred. Plan for delivery in [place]. Patient understands possible need for pleurocentesis after [...] her desire to see the facilities at [facility]. peds referral made. Assessment & Plan (08/14/2021 [...] her desire to see the facilities at [facility]. Abnormal chromosomal and gen etic finding on [...] 06/30/21. Pediatric Cardiology echocardiogram at 22-23 weeks. [facility] serial growth scan every 4 weeks. [facility] serial hydrops check after 24.0 weeks. Weekly [...] = 0.6 oz pur e alcohol) rare [place] Depression Scale Answer Date Recorded [place] Depression Scale Total 1 07/09/2024 The thought [...] PM EST Office Visit Gynecology/Obstetrics [facility] [address] [place] [address] BackerAnabela CRNP [address] [place] [address] Pending Results Name Type Priority Associated Diagnoses [...]
--- OUTSIDE RECORDS SUMMARY | 2025-01-07 02:03 | External Medical Summary | Summary of Care ---
Author Name Unknown Organization [facility] Address [address] [place] [address] Phone [phone] Care Team Providers Care Food Writer Name Role Phone Unavailable Primary Care Provider Unavailabl e Reason for Visit * Reason Comments Return Visit Encounter Details Date Type Department Care Team ([facility] Contact Info) Description 08/06/2024 2:15 PM EDT Office Visit Gynecology/Obstetric s Jer Pineda [address] [place] [address] Lizzy Rocha CRNP [address] [place] [address] Supervision of other normal , antepartum*; Antepartum multigravida of advanced maternal age; Family history of Down syndrome Allergies No known active allergiesdocumented as of this encounter (statuses as of 08/06/2024) Medications Medication Sig Dispensed Refills Start Date End Date Status 27-0.8 MG Oral Tablet Take 1 Tablet by mouth in the morning. Active documented as of this encounter (statuses as of 08/06/2024) Active Problems Problem Noted Date Diagnosed Date Supervision of other normal , antepartu m 07/09/2024 Antepartum multigravida of advanced maternal age 0907/09/2024 Family history of Down syndrome 07/09/2024 Overview: Daughter with T21 Vaginal delivery 11/04/2021 Allergic rhinitis 08/02/2010 Estimated Date of Delivery Comme nts Yes 01/08/2025 Based on Ultraso und documented as of this encounter (statuses as of 08/06/2024) Resolved Problems Problem Noted Date Diagnosed Date Resolved Date GBS (group B streptococcus) infection 10/23/2021 12/14/2021 Overview: 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 Pleural effusion, , aff ecting care of mother, antepartum 08/14/2021 12/14/2021 Overview: Resolved as of 10/27/21 per [facility] Last Assessment & Plan: No effusion visualized today. This is excellent [...] is scheduled prior to IOL next week. Abnormal chromosomal and gen etic finding on screening of mother 07/09/2021 12/14/2021 Last Assessment & Plan: Presumed T21 based on NIPT. Cystic hygroma of fetus in s [place] 06/30/2021 12/14/2021 Overview: Cell free DNA screening: ordered as of 06/22/21; consider amniocentesis upon result. Attend genetics counselor appointment on 06/30/21. Pediatric Cardiology echocardiogram at 22-23 weeks. [facility] serial growth scan every 4 weeks. [facility] serial hydrops check after 24.0 weeks. Weekly BPP at 32 wks multidisciplinary conference: [facility] Rubella non-immune status, antepartum 04/02/2021 12/14/2021 High-risk 04/01/2021 12/14/19 22 Acute URI 08/02/2010 07/03/2018 Cough 08/02/2010 07/03/2018 ADVANCE DIRECTIVE INFORMATION 03/01/2006 07/03/2018 Overview: Not age appropriate Varicella without complication 10/25/2002 07/03/2018 RUBELLA UNCOMPLICATED - age 2 04/27/2000 07/03/2018 documented as of this encounter (statuses as of 08/06/2024) Immunizations Name Administration Dates Next Due H1N1 [...] = 0.6 oz pur e alcohol) rare [place] Depression Scale Answer Date Recorded [place] Depression Scale Total 1 07/09/2024 The thought [...] Recorded Sex Assigned at Not on file Gender Identity Not on file Sexual Orientation Not on file Job Start Date Occupation Industry Not on file Not on file Not on file documented as of this encounter Last Filed Vital Signs Vital Sign Reading Time Taken Comments Blood Pressure 124/68 08/06/2024 2:17 PM EDT Pulse - - Temperature - - Respiratory Rate - - Oxygen Saturation - - Inhaled Oxygen Concentration - - Weight 71.2 kg (157 lb) 08/06/2024 2:17 PM EDT Height - - Body Mass Index 29.66 03/24/2023 3:20 PM EDT documented in this encounter Progress Notes * Lizzy Rocha CRNP - 08/06/2024 2:42 PM EDT 17w6d Complaints: none. Feeling well. +FM. No contractions, bleeding, or LOF. Discussed MSAFP, declines. Anatomy u/s with next visit. Prefers to wait 4 weeks for this. ERNESTINA Ventura * Lorena Jimenez CMA - 08/06/2024 2:17 PM EDT 17w6d documented in this encounter Plan of Treatment Upcoming Encounters Date Type Department Care Team (Late st Contact Info) Description 09/05/2024 9:00 AM EST Imaging Radiology [facility] [address] [place] [address] 09/05/2024 10:45 AM EST Office Visit Gynecology/Obstetrics [facility] [address] [place] [address] Lizzy Rocha CRNP [address] [facility] [place] [address] Scheduled Orders Name Type Priority Associated Diagnoses Orde r Schedule US PREG SINGLE/1ST GEST, 14 WEEKS OR LATER Medical Imaging Routine Supervision of other normal , antepartum Expected: 08/20/2024 (Approximate), Expires: 09/06/2025 Health Maintenance Due Date Last Done Comments [...]
--- OUTSIDE RECORDS SUMMARY | 2025-01-07 02:03 | External Medical Summary ---
Author Name Unknown Address Unknown Organization K01:[facility] - [address] [place] [address] Laboratory Report Ordering Provider Test Date Status AUGUSTIN CAM 10/31/2024 15:57:05 Final Pt bring Fresh Test Observation Date Value Abnormality Reference (Units ) Status Glucose [Moles/volume] in Serum or Plasma --1 hour post 50 g glucose PO 10/31/2024 15:57:05 190 Above high normal 70-129 (mg/dL) Final Performing Location [facility] - [address] [place] [address]
--- OUTSIDE RECORDS SUMMARY | 2025-01-07 02:03 | External Medical Summary ---
Author Name Unknown Address Unknown Organization K01:[facility] [place] [address] [place] [address] Laboratory Report Ordering Provider Test Date Status AUGUSTIN CAM 10/31/2024 15:57:05 Final Observation Date Value Abnormality Reference (Units ) Status Treponema pallidum Ab [Presence] in Serum by Immunoassay 10/31/2024 15:57:05 Nonreactive Nonreactive Final No serologic evidence of syp hilis. No additional testing clinicially indicated at this time. Consider repeat testing in 2-4 weeks if acute or primary syphilis is suspected. Performing Location [facility] [place] [address] [place] [address]
[2025-01-07] MEDS ORDERED: LACTATED RINGER'S 1,000 ML IV PRN (02:48)
[2025-01-07 03:22] LABS: Hematocrit (blood only) 40.6 % (37.0-47.0); Hemoglobin 13.9 g/dl (12.0-16.0); Mean Corpuscular Hemoglobin 31.4 pg (25.0-34.0); Mean Corpuscular Hgb Conc 34.2 g/dL (32.0-36.0); Mean Corpuscular Volume 91.9 fL (80.0-100.0); Platelet Count 194 K/uL (130-400); RDW Coefficient of Variation 12.4 % (11.5-14.5); RDW Standard Deviation 41.4 fL (36.4-46.3); Red Blood Count 4.42 M/uL (4.20-5.40); White Blood Count 15.08 K/ul (4.8-10.8)
--- NOTE | 2025-01-07 03:28 | History & Physical Report ---
Date of Service January 07, 2025 Assessment & Plan (1) Term : Plan: Admit in labor Admission and Anticipated Discharge Date Admission Date: January 07, 2025 History of Present Illness Chief Complaint: onset of labor at term Primary Care Provider: ROSINA PCP 35 F P1001 at 39.6 weeks presents to L&D with onset of labor. GBS is positive. patient does not want any intervention at this time including rupture o f membranes or exam. Allergies Allergy/AdvReac Type Severity Reaction Status Date / Time No Known Allergies Allergy Unverified 01/07/25 02:55 Home Medications Medication Instructions Recorded Confirmed Type ferrous sulfate 325 mg (65 mg 325 mg PO DAILY 11/03/21 01/07/25 History iron) capsule,extended release prenat.vits,iqra,ecd-jmrt-hoqjl 1 tab PO DAILY 11/03/21 01/07/25 History Patient History Surgical History H/O wisdom tooth extraction Family History Grandfather (Maternal) Colon cancer Grandmother (Maternal) Diabetes Social History Smoking Status: Never smoker Hx Alcohol Use: No Hx Substance Use: No Preferred Language: Icelandic Communication Ability: Effective 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 Required: No Beliefs That Will Affect Care: None marital status: marital status details: Isaac Ocampo Current Living Situation: Spouse and Family Current Living Situation Comment: Lives with , daughter(3), and 1 dog current occupational status: employed 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 Other Information That Helps Us Care for You: No Feels Safe at Home: Yes Safety Concerns: Feels Safe At This Time Assistive Devices: None OB History trisomy 21 in last 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 History neg Review of Systems All systems reviewed & are unremarkable except as noted in HPI & below Physical Exam Constitutional: WD/WN, vitals as above Eyes: PERRL, conjunctivae normal, anicteric sclerae Respiratory: normal respiratory effort, lungs clear to auscultation Cardiovascular: Rate/Rhythm: regular rate and regular rhythm Gastrointestinal (Abdomen): Inspection/Auscultation: abdomen normal to inspection Musculoskeletal: Extremities: extremities normal to inspection Skin: no rashes, warm and dry Neurologic: patellar DTR's 2+ bilat, sensation intact Psychiatric: A+Ox3, euthymic affect Genitourinary: Manual OB Exam: + cervical dilation 5 cm OB Exam Monitor Tracing: + external FHT monitor used, + external uterine monitor used, + category I and + normal FHT variability Results & Data Vital Signs (Past 12 Hours) Vital Signs Temp Pulse Resp BP 01/07/25 02:14 36.7 C 18 01/07/25 02:12 18 01/07/25 02:12 36.7 C 18 01/07/25 02:04 93 H 134/80 Laboratory Results Laboratory Results - last 72 hr 01/07/25 02:59 WBC 15.08 H RBC 4.42 Hgb 13.9 Hct 40.6 MCV 91.9 MCH 31.4 MCHC 34.2 RDW Std Deviation 41.4 RDW Coeff of Brent 12.4 Plt Count 194 MPV 10.0 Monitoring External Monitor Cat 1
[2025-01-07] MEDS: PENICILLIN GK 6 MU in DEXTROSE 5% 250 ML IV STA (03:36)
[2025-01-07] MEDS: LIDOCAINE 1% LOCAL 20 ML VIAL INFIL PRN (04:32)
[2025-01-07] MEDS ORDERED: ACETAMINOPHEN 325 MG TAB PO PRN (05:00)
[2025-01-07] MEDS ORDERED: bisacodyL 10 MG SUPP PR PRN (05:00)
[2025-01-07] MEDS ORDERED: IBUPROFEN 600 MG TAB PO PRN (05:00)
[2025-01-07] MEDS ORDERED: HYDROCORTISONE ACETATE 25 MG SUPP PR PRN (05:00)
[2025-01-07] MEDS ORDERED: OXYTOCIN 30 UNITS/NSS 30 UNITS/500 ML BAG IV PRN (05:00)
--- NOTE | 2025-01-07 05:00 | Delivery Summary ---
Vaginal Delivery Summary Date of Service January 07, 2025 Vaginal Delivery Summary live male ANKUR with delayed cord clamping and nuchal cord x1 reduced at delivery of head. Apgars 8/9 weight pending. Cord blood obtained followed by spontaneous delivery of intact placenta. Patient did not want any Oxytocin post-delivery. Utrerine atony noted with some extra bleeding so fundal massage was started to firm up uterus. First degree tear repaired with 3/0 Vicryl suture. QBL 858 ml. All sponge, needle and instrument counts are correct. Mom and baby stable.
[2025-01-07] MEDS: OXYTOCIN 30 UNITS/NSS 30 UNITS/500 ML BAG IV PRN (05:37)
[2025-01-07] MEDS ORDERED: PENICILLIN GK 3 MU in DEXTROSE 5% 100 ML IV PRN (05:49)
[2025-01-07] MEDS: DIPHTHER/TETAN/PERTUS Vaccine (Tdap, Adol/Adult) 0.5mL IM ONE (06:10)
[2025-01-07] MEDS: BENZOCAINE 20% SPRY 85 APPLN/85 GM CAN EXT PRN (07:19)
[2025-01-07] MEDS: DOCUSATE SODIUM 100 MG CAP PO SCH (07:36)
[2025-01-07] MEDS: PRENATAL VITAMIN 1 TAB PO SCH (07:36)
[2025-01-07] MEDS: FERROUS SULFATE 325 MG TAB PO SCH (07:36)
[2025-01-07] MEDS ORDERED: NON-FORMULARY MEDICATION (Prenat.Vits,Cal,Min-Iron-Folic Tablet) PO SCH (09:00)
[2025-01-07] MEDS ORDERED: [UNRECOGNIZED DRUG - OTHER] PO SCH (09:00)
[2025-01-07] MEDS ORDERED: FERROUS SULFATE PO SCH (09:00)
[2025-01-07 10:14] LABS: Basophils # (auto) 0.03 K/uL (0.00-0.20); Basophils % (auto) 0.2 %; Hematocrit (blood only) 35.2 % (37.0-47.0); Immature Granulocytes # (auto) 0.09 K/uL (0.01-0.20); Immature Granulocytes % (auto) 0.5 %; Lymphocytes % (auto) 6.4 %; Mean Corpuscular Hemoglobin 31.5 pg (25.0-34.0); Mean Corpuscular Hgb Conc 34.1 g/dL (32.0-36.0); Mean Corpuscular Volume 92.4 fL (80.0-100.0); Mean Platelet Volume 10.5 fL (9.4-12.4); Monocytes # (auto) 1.04 K/uL (0.11-0.59); Monocytes % (auto) 5.5 %; Neutrophils # (auto) 16.51 K/uL (1.40-6.50); Neutrophils % (auto) 87.4 %; Platelet Count 207 K/uL (130-400); RDW Coefficient of Variation 12.5 % (11.5-14.5); RDW Standard Deviation 41.9 fL (36.4-46.3); Red Blood Count 3.81 M/uL (4.20-5.40); White Blood Count 18.87 K/ul (4.8-10.8)
[2025-01-07 10:42] LABS: Fibrinogen 441 mg/dl (184-400); INR 0.9 (0.9-1.1); Partial Thromboplastin Ratio 0.9; Partial Thromboplastin Time 23 Seconds (21-31); Prothrombin Time 9.9 Seconds (9.0-12.0)
--- NOTE | 2025-01-07 11:22 | Obstetrical Progress Note ---
Date of Service January 07, 2025 Assessment & Plan Admission and Anticipated Discharge Date Admission Date: January 07, 2025 Subjective Patient is seen and examined. She feels well, no complaints. Ambulating without dizziness Voiding without difficulty Tolerating regular diet with out N&V Bleeding is minimal No fever/ chills/ CP/ SOB/ N&V/ Leg pain Breast feeding without problems Vital Signs Height Weight Body Mass Index Blood Pressure Blood Pressure Position Temperature Temperature Source 5 ft 1 in 78.471 kg 32.6 111/67 Semi-fowlers 36.8 C Oral 01/07/25 02:14 01/07/25 02:14 01/07/25 02:14 01/07/25 09:30 01/07/25 09:30 01/07/25 09:30 01/07/25 09:30 Pulse Rate Respiratory Rate Pulse Oximetry 96 H 18 97 01/07/25 09:30 01/07/25 09:30 01/07/25 09:30 Lab Results 01/07/25 01/07/25 Range/Units 02:59 09:53 WBC 15.08 H 18.87 H (4.8-10.8) K/ul RBC 4.42 3.81 L (4.20-5.40) M/uL Hgb 13.9 12.0 (12.0-16.0) g/dl Hct 40.6 35.2 L (37.0-47.0) % MCV 91.9 92.4 (80.0-100.0) fL MCH 31.4 31.5 (25.0-34.0) pg MCHC 34.2 34.1 (32.0-36.0) g/dL RDW Std Deviation 41.4 41.9 (36.4-46.3) fL RDW Coeff of Brent 12.4 12.5 (11.5-14.5) % Plt Count 194 207 (130-400) K/uL MPV 10.0 10.5 (9.4-12.4) fL Immature Gran % (Auto) 0.5 % Neut % (Auto) 87.4 % Lymph % (Auto) 6.4 % [place] % (Auto) 5.5 % Eos % (Auto) 0.0 % Baso % (Auto) 0.2 % Neut # (Auto) 16.51 H (1.40-6.50) K/uL Lymph # (Auto) 1.20 (1.20-3.40) K/uL [place] # (Auto) 1.04 H (0.11-0.59) K/uL Eos # (Auto) 0.00 (0.00-0.50) K/uL Baso # (Auto) 0.03 (0.00-0.20) K/uL Immature Gran # (Auto) 0.09 (0.01-0.20) K/uL PT 9.9 (9.0-12.0) Seconds INR 0.9 (0.9-1.1) APTT 23 (21-31) Seconds PTT Ratio 0.9 Fibrinogen 441 H (184-400) mg/dl Treponema pallidum Ab Negative (Negative) PE: General: Alert, orientedx3, NAD Abd: soft, NT, fundus firm, below Umbilicus Perineum intact, Lochia rubra minimal Ext; NT, no edema AP: 35 yo s/p , ppd# 0, pp hemorrhage, QBL >1000ML VSS Afebrile doing well Labs normal Declined PO Methergine and all meds Continue routine care All questions were answered D/C home tomorrow Results & Data Vital Signs (Past 12 Hours) Vital Signs Temp Pulse Pulse Resp BP BP Pulse Ox 01/07/25 09:30 36.8 C 96 H 18 111/67 97 01/07/25 07:45 103 H 118/60 01/07/25 07:30 100 H 119/56 L 01/07/25 07:15 36.6 C 18 01/07/25 07:15 92 H 123/64 01/07/25 07:00 100 H 127/59 L 01/07/25 06:46 96 H 129/63 01/07/25 06:45 36.4 C L 18 01/07/25 06:30 87 125/58 L 01/07/25 06:15 36.6 C 18 01/07/25 06:15 85 132/70 01/07/25 06:00 96 H 115/71 01/07/25 05:45 36.6 C 18 01/07/25 05:45 90 114/69 01/07/25 05:30 36.6 C 18 01/07/25 05:30 98 H 111/66 01/07/25 05:15 36.6 C 18 01/07/25 05:15 98 H 112/68 01/07/25 05:00 36.6 C 18 01/07/25 05:00 91 H 112/68 01/07/25 04:44 20 01/07/25 04:44 96 H 119/78 01/07/25 02:14 36.7 C 18 01/07/25 02:12 18 01/07/25 02:12 36.7 C 18 01/07/25 02:04 93 H 134/80 O2 Del Method 01/07/25 09:30 Room Air 01/07/25 07:45 01/07/25 07:30 01/07/25 07:15 01/07/25 07:15 01/07/25 07:00 01/07/25 06:46 01/07/25 06:45 01/07/25 06:30 01/07/25 06:15 01/07/25 06:15 01/07/25 06:00 01/07/25 05:45 01/07/25 05:45 01/07/25 05:30 01/07/25 05:30 01/07/25 05:15 01/07/25 05:15 01/07/25 05:00 01/07/25 05:00 01/07/25 04:44 01/07/25 04:44 01/07/25 02:14 01/07/25 02:12 01/07/25 02:12 01/07/25 02:04
[2025-01-07 14:07] VITALS: O2SAT 98
[2025-01-08 06:28] LABS: Basophils # (auto) 0.02 K/uL (0.00-0.20); Basophils % (auto) 0.2 %; Eosinophils # (auto) 0.14 K/uL (0.00-0.50); Eosinophils % (auto) 1.3 %; Hematocrit (blood only) 31.5 % (37.0-47.0); Hemoglobin 10.5 g/dl (12.0-16.0); Immature Granulocytes # (auto) 0.14 K/uL (0.01-0.20); Immature Granulocytes % (auto) 1.3 %; Lymphocytes # (auto) 2.29 K/uL (1.20-3.40); Lymphocytes % (auto) 20.5 %; Mean Corpuscular Hemoglobin 31.3 pg (25.0-34.0); Mean Corpuscular Hgb Conc 33.3 g/dL (32.0-36.0); Mean Platelet Volume 10.3 fL (9.4-12.4); Monocytes # (auto) 0.61 K/uL (0.11-0.59); Monocytes % (auto) 5.5 %; Neutrophils # (auto) 7.96 K/uL (1.40-6.50); Neutrophils % (auto) 71.2 %; Platelet Count 183 K/uL (130-400); RDW Coefficient of Variation 12.5 % (11.5-14.5); Red Blood Count 3.35 M/uL (4.20-5.40); White Blood Count 11.16 K/ul (4.8-10.8)
[2025-01-08 08:19] VITALS: BP 100/60; PULSE 78; RESP 18; TEMP 97.5
--- NOTE | 2025-01-08 09:19 | Obstetrical Progress Note ---
Date of Service January 08, 2025 Assessment & Plan Admission and Anticipated Discharge Date Admission Date: January 07, 2025 Subjective Patient is seen and examined. She feels well, no complaints. Ambulating without dizziness Voiding without difficulty Tolerating regular diet with out N&V Bleeding is minimal No fever/ chills/ CP/ SOB/ N&V/ Leg pain Breast feeding without problems Vital Signs Temp Pulse Resp BP Pulse Ox O2 Del Method 01/08/25 08:17 36.4 C L 78 18 100/60 98 Room Air 01/08/25 05:00 36.6 C 84 16 99/63 L 98 Room Air 01/07/25 23:25 36.6 C 80 16 109/69 98 Room Air Lab Results 01/07/25 01/07/25 01/08/25 Range/Units 02:59 09:53 06:00 WBC 15.08 H 18.87 H 11.16 H (4.8-10.8) K/ul RBC 4.42 3.81 L 3.35 L (4.20-5.40) M/uL Hgb 13.9 12.0 10.5 L (12.0-16.0) g/dl Hct 40.6 35.2 L 31.5 L (37.0-47.0) % MCV 91.9 92.4 94.0 (80.0-100.0) fL MCH 31.4 31.5 31.3 (25.0-34.0) pg MCHC 34.2 34.1 33.3 (32.0-36.0) g/dL RDW Std Deviation 41.4 41.9 43.0 (36.4-46.3) fL RDW Coeff of Brent 12.4 12.5 12.5 (11.5-14.5) % Plt Count 194 207 183 (130-400) K/uL MPV 10.0 10.5 10.3 (9.4-12.4) fL Immature Gran % (Auto) 0.5 1.3 % Neut % (Auto) 87.4 71.2 % Lymph % (Auto) 6.4 20.5 % [place] % (Auto) 5.5 5.5 % Eos % (Auto) 0.0 1.3 % Baso % (Auto) 0.2 0.2 % Neut # (Auto) 16.51 H 7.96 H (1.40-6.50) K/uL Lymph # (Auto) 1.20 2.29 (1.20-3.40) K/uL [place] # (Auto) 1.04 H 0.61 H (0.11-0.59) K/uL Eos # (Auto) 0.00 0.14 (0.00-0.50) K/uL Baso # (Auto) 0.03 0.02 (0.00-0.20) K/uL Immature Gran # (Auto) 0.09 0.14 (0.01-0.20) K/uL PT 9.9 (9.0-12.0) Seconds INR 0.9 (0.9-1.1) APTT 23 (21-31) Seconds PTT Ratio 0.9 Fibrinogen 441 H (184-400) mg/dl Treponema pallidum Ab Negative (Negative) PE: General: Alert, orientedx3, NAD Abd: soft, NT, fundus firm, below Umbilicus Perineum intact, Lochia rubra minimal Ext; NT, no edema AP: 35 yo s/p , ppd# 1 VSS Afebrile doing well Continue routine care All questions were answered Desires D/C home today Results & Data Vital Signs (Past 12 Hours) Vital Signs Temp Pulse Resp BP Pulse Ox O2 Del Method 01/08/25 08:17 36.4 C L 78 18 100/60 98 Room Air 01/08/25 05:00 36.6 C 84 16 99/63 L 98 Room Air 01/07/25 23:25 36.6 C 80 16 109/69 98 Room Air
[2025-01-08] MEDS ORDERED: bisacodyL 5 MG TABEC PO SCH (20:00)
== END 2025-01-08 10:50 | disposition home health service (06) | DRG 807 ==
LOC: OPB 01:54 → 4S1 01:57 → 4E2 09:15